=== PATIENT | female | born 1980 | race Caucasian/White ===

== ENCOUNTER 2021-08-22 17:14 | Emergency (ER) | payer MEDICAID ==
[~2021-08-22] VITALS: Ht 172 cm; Wt 66.0 kg
[2021-08-22] MEDS ORDERED: KETOROLAC 30 MG/ML VIAL IVP STA (17:58)
[2021-08-22] MEDS ORDERED: ONDANSETRON 4 MG/2 ML (SDV) Z0FRAN IVP ONE (18:00)
[2021-08-22] MEDS ORDERED: LACTATED RINGERS 1,000 ML IV ONE (18:00)
--- NOTE | 2021-08-22 18:04 | ED General ---
General Stated Complaint: COVID SYMPTOMS History of Present Illness Date Seen by Provider: Aug 22, 2021 Time Seen by Provider: 17:19 Initial Comments Date Seen by Provider: Aug 22, 2021 Time Seen by Provider: 17:19 Initial Comments Patient to ER by EMS from home with chief complaint of 2 weeks of headache and cough. Today she says she has a hard time swallowing because of her sore throat. She has not been seen anywhere or tested. She has a history of bipolar disorder but does not take any medicines or follow-up with a primary care doctor. She has nausea with vomiting but no diarrhea. She is says she stru ggled to take chicken noodle soup this morning. She thinks she has COVID-19. She did not get vaccinations for such. Patient gave herself Tylenol just before coming in but has not had anything prior to this. Patient has a history of alcoholism but says she has been clean for 2 years. Patient denies any other recreational drug use besides occasional marijuana. Patient states that her allergy to ibuprofen is that she has a rash with it. Her tubes are tied. PCP: NONE Allergies and Home Medications Allergies Coded Allergies: codeine (Verified Allergy, Unknown, 08/22/21) ibuprofen (Verified Allergy, Unknown, 08/22/21) Patient Home Medication List Home Medication List Reviewed: Yes Nitrofurantoin Monohyd/M-Cryst (Macrobid 100 mg Capsule) 100 Mg Capsule, 1 TAB PO BID Prescribed by: DAVID KOHLER on 08/22/211941 Ondansetron (Ondansetron Odt) 8 Mg Tab.rapdis, 8 MG PO Q6H Prescribed by: DAVID KOHLER on 08/22/211938 Review of Systems Review of Systems Constitutional: see HPI, fever, malaise, other (Review of Systems-Respiratory) EENTM: throat pain Respiratory: see HPI, cough; No short of breath Cardiovascular: no symptoms reported Gastrointestinal: see HPI; No abdominal pain, No diarrhea; loss of appetite, nausea, vomiting Genitourinary: no symptoms reported Musculoskeletal: see HPI Skin: no symptoms reported Psychiatric/Neurological: See HPI Hematologic/Lymphatic: No Symptoms Reported Immunological/Allergic: no symptoms reported Past Kvnxmmk-Vnwmad-Wpkcrh Hx Patient Social History Tobacco Use?: No Smoking Status: Never a Smoker Substance use?: Yes Substance type: Marijuana Substance frequency: Daily Alcohol Use?: Yes (HX OF ABUSE, CLAIMS NONE FOR 2 YEARS) Past Medical History Surgeries: Yes Gallbladder, Tubal Ligation Respiratory: No Cardiac: No Neurological: No : No [employer] History: Tubal Ligation Genitourinary: No Gastrointestinal: Yes (S/P CHOLECYSTECTOMY) Gall Bladder Disease Musculoskeletal: No Endocrine: No HEENT: No Cancer: No Psychosocial: Yes Anxiety, Bipolar, Depression Integumentary: No Blood Disorders: No Physical Exam Vital Signs Vital Signs - First Documented 08/22/21 17:14 Temp 38.9 Pulse 113 Resp 16 B/P (MAP) 178/93 (121) Pulse Ox 98 O2 Delivery Room Air Capillary Refill : Height, Weight, BMI Height: '" Weight: lbs. oz. kg; BMI Method: General Appearance: No Apparent Distress, WD/WN, Other (Review of Systems- Respiratory) HEENT: PERRL/EOMI, TMs Normal, Normal ENT Inspection, Pharynx Normal, Other (NASAL CONGESTION) Neck: Normal Inspection Respiratory: Normal Breath Sounds, No Accessory Muscle Use, No Respiratory Distress Cardiovascular: No Edema, No Gallop, No JVD, No Murmur, Normal Peripheral Pulses, Tachycardia Gastrointestinal: Normal Bowel Sounds, No Organomegaly, No Pulsatile Mass, Non Tender, Soft Back: Normal Inspection Extremity: Normal Capillary Refill, Normal Inspection, Normal Range of Motion, Non Tender, No Calf Tenderness, No Pedal Edema Neurologic/Psychiatric: Alert, Oriented x3, No Motor/Sensory Deficits, rose grader II- XII Norm as Tested, Other (FLAT AFFECT) Skin: Warm/Dry, Pallor; No Rash Focused Exam Sepsis Stage: Ruled Out Reason for ruling out sepsis: DOES NOT MEET CRITERIA Possible Source: Pulmonary (DX WITH UTI AT DISMISSAL) Lactate Level 08/22/21 18:04: Lactic Acid Level 1.13 Time of Focused Exam: 18:45 Respiratory: Normal Breath Sounds, No Accessory Muscle Use, No Respiratory Distress Cardiovascular: Regular Rate, Rhythm, No Murmur Capillary Refill: Less Than 3 Seconds Skin: normal color, warm/dry Lactic Acid Level Laboratory Tests Test 08/22/21 18:04 Lactic Acid Level 1.13 MMOL/L (0.50-2.00) Within 3hrs of presentation: Admin fluids, Admin ABX, Blood cultures prior to ABX's, Focus exam, Lactate level, Other (IV ANTIBIOTICS NOT NECESSARY, DID SEND HOME WITH ORAL ANTIBIOTIC FOR UTI) Progress/Results/Core Measures Suspected Sepsis SIRS Temperature: Pulse: Respiratory Rate: Laboratory Tests 08/22/21 17:40: White Blood Count 10.1 Blood Pressure / Mean: 08/22/21 18:04: Lactic Acid Level 1.13 Laboratory Tests 08/22/21 17:40: Creatinine 0.62, INR Comment 1.0, Platelet Count 383, Total Bilirubin 0.2 Results/Orders Lab Results Laboratory Tests Test 08/22/21 17:40 08/22/21 18:04 Range/Units White Blood Count 10.1 4.3-11.0 10^3/uL Red Blood Count 4.49 3.80-5.11 10^6/uL Hemoglobin 7.8 L 11.5-16.0 g/dL Hematocrit 29 L 35-52 % Mean Corpuscular Volume 64 L 80-99 fL Mean Corpuscular Hemoglobin 17 L 25-34 pg Mean Corpuscular Hemoglobin Concent 27 L 32-36 g/dL Red Cell Distribution Width 19.2 H 10.0-14.5 % Platelet Count 383 130-400 10^3/uL Mean Platelet Volume 9.5 9.0-12.2 fL Immature Granulocyte % (Auto) 0 % Neutrophils (%) (Auto) 74 42-75 % Lymphocytes (%) (Auto) 20 12-44 % Monocytes (%) (Auto) 6 0-12 % Eosinophils (%) (Auto) 1 0-10 % Basophils (%) (Auto) 0 0-10 % Neutrophils # (Auto) 7.4 1.8-7.8 10^3/uL Lymphocytes # (Auto) 2.0 1.0-4.0 10^3/uL Monocytes # (Auto) 0.6 0.0-1.0 10^3/uL Eosinophils # (Auto) 0.1 0.0-0.3 10^3/uL Basophils # (Auto) 0.0 0.0-0.1 10^3/uL Immature Granulocyte # (Auto) 0.0 0.0-0.1 10^3/uL Erythrocyte Sedimentation Rate 23 H 0-20 MM/HR Prothrombin Time 13.9 12.2-14.7 SEC INR Comment 1.0 0.8-1.4 Activated Partial Thromboplast Time 28 24-35 SEC D-Dimer 0.65 H 0.00-0.49 UG/ML Urine Color YELLOW Urine Clarity CLEAR Urine pH 6.0 5-9 Urine Specific [place] 1.015 L 1.016-1.022 Urine Protein NEGATIVE NEGATIVE Urine Glucose (UA) NEGATIVE NEGATIVE Urine Ketones NEGATIVE NEGATIVE Urine Nitrite NEGATIVE NEGATIVE Urine Bilirubin NEGATIVE NEGATIVE Urine Urobilinogen 0.2 < = 1.0 MG/DL Urine Leukocyte Esterase 1+ H NEGATIVE Urine RBC (Auto) NEGATIVE NEGATIVE Urine RBC NONE /HPF Urine WBC 2-5 /HPF Urine Squamous Epithelial Cells 2-5 /HPF Urine Crystals NONE /LPF Urine Bacteria MODERATE H /HPF Urine Casts NONE /LPF Urine Mucus SMALL H /LPF Urine Culture Indicated CULTURE PENDING Sodium Level 140 135-145 MMOL/L Potassium Level 3.5 L 3.6-5.0 MMOL/L Chloride Level 108 H 98-107 MMOL/L Carbon Dioxide Level 22 21-32 MMOL/L Anion Gap 10 5-14 MMOL/L Blood Urea Nitrogen 5 L 7-18 MG/DL Creatinine 0.62 0.60-1.30 MG/DL Estimat Glomerular Filtration Rate 115 BUN/Creatinine Ratio 8 Glucose Level 88 70-105 MG/DL Calcium Level 8.2 L 8.5-10.1 MG/DL Corrected Calcium 8.5 8.5-10.1 MG/DL Magnesium Level 1.8 1.6-2.4 MG/DL Total Bilirubin 0.2 0.1-1.0 MG/DL Aspartate Amino Transf (AST/SGOT) 13 5-34 U/L Alanine Aminotransferase (ALT/SGPT) 16 0-55 U/L Alkaline Phosphatase 103 40-136 U/L Lactate Dehydrogenase 176 125-220 U/L C-Reactive Protein High Sensitivity 0.29 0.00-0.50 MG/DL B-Type Natriuretic Peptide < 10.0 <100.0 PG/ML Total Protein 6.4 6.4-8.2 GM/DL Albumin 3.6 3.2-4.5 GM/DL Procalcitonin 0.03 <0.10 NG/ML Serum Test, Qualitative NEGATIVE NEGATIVE Urine Opiates Screen NEGATIVE NEGATIVE Urine Oxycodone Screen NEGATIVE NEGATIVE Urine Methadone Screen NEGATIVE NEGATIVE Urine Propoxyphene Screen NEGATIVE NEGATIVE Urine Barbiturates Screen NEGATIVE NEGATIVE Ur Tricyclic Antidepressants Screen NEGATIVE NEGATIVE Urine Phencyclidine Screen NEGATIVE NEGATIVE Urine Amphetamines Screen NEGATIVE NEGATIVE Urine Methamphetamines Screen NEGATIVE NEGATIVE Urine Benzodiazepines Screen NEGATIVE NEGATIVE Urine Cocaine Screen NEGATIVE NEGATIVE Urine Cannabinoids Screen NEGATIVE NEGATIVE Serum Alcohol < 10 <10 MG/DL Monoscreen NEGATIVE NEGATIVE Influenza Type A (RT-PCR) Not Detected Not Detecte Influenza Type B (RT-PCR) Not Detected Not Detecte SARS-CoV-2 RNA (RT-PCR) Not Detected Not Detecte Group A Streptococcus Screen NEGATIVE NEGATIVE Lactic Acid Level 1.13 0.50-2.00 MMOL/L My Orders Orders - DAVID KOHLER DO Cbc With Automated Diff (08/22/21 17:58) Comprehensive Metabolic Panel (08/22/21 17:58) Fibrin Degradation Products (08/22/21 17:58) Procalcitonin (Pct) (08/22/21 17:58) Hs C Reactive Protein (08/22/21 17:58) Erythrocyte Sedimentation Rate (08/22/21 17:58) LDH (08/22/21 17:58) Blood Culture (08/22/21 17:58) Hcg,Qualitative Serum (08/22/21 17:58) Covid 19 Inhouse Test (08/22/21 17:58) Sputum Culture (08/22/21 17:58) Urinalysis (08/22/21 17:58) Urine Culture (08/22/21 17:58) Protime With Inr (08/22/21 17:58) Partial Thromboplastin Time (08/22/21 17:58) Chest 1 View, Ap/Pa Only (08/22/21 17:58) Ed Iv/Invasive Line Start (08/22/21 17:58) Ed Iv/Invasive Line Start (08/22/21 17:58) Vital Signs Adult Sepsis Patie Q15M (08/22/21 17:58) O2 (08/22/21 17:58) Remove Rings In Anticipation O (08/22/21 17:58) Lactic Acid Analyzer (08/22/21 17:58) Monitor-Rhythm Ecg Trace Only (08/22/21 17:58) Bnp [place] (08/22/21 17:58) Magnesium (08/22/21 17:58) Ed Iv/Invasive Line Start (08/22/21 17:58) Lactated Ringers (Lr 1000 Ml Iv Solution (08/22/21 18:00) Ondansetron Injection (Zofran Injectio (08/22/21 18:00) Ketorolac Injection (Toradol Injection) (08/22/21 17:58) Influenza A And B By Pcr (08/22/21 17:58) Isolation Central Supply Req (08/22/21 17:58) Monotest (08/22/21 18:05) Rapid Strep A Screen (08/22/21 18:05) Alcohol (08/22/21 18:13) Drug Screen Stat (Urine) (08/22/21 18:13) Ct [facility]or Chest/Noang Abd-Pelv W (08/22/21 18:41) Iohexol Injection (Omnipaque 350 Mg/Ml 1 (08/22/21 18:45) Ns (Ivpb) (Sodium Chloride 0.9% Ivpb Bag (08/22/21 18:45) Medications Given in ED Current Medications Medications Dose Ordered Sig/Serafin Route Start Time Stop Time Status Last Admin Dose Admin Iohexol 100 ml ONCE ONCE IV 08/22/21 18:45 08/22/21 18:47 DC 08/22/21 18:56 66 ML Lactated Ringer's 1,000 ml @ 0 mls/hr Q0M ONCE IV 08/22/21 18:00 08/22/21 18:02 DC 08/22/21 18:14 1,000 MLS/HR Ondansetron HCl 8 mg ONCE ONCE IVP 08/22/21 18:00 08/22/21 18:02 DC 08/22/21 17:40 8 MG Sodium Chloride 100 ml ONCE ONCE IV 08/22/21 18:45 08/22/21 18:47 DC 08/22/21 18:56 70 ML Vital Signs/I&O 08/22/21 08/22/21 17:14 19:49 Temp 38.9 38.9 Pulse 113 107 Resp 16 16 B/P (MAP) 178/93 (121) 113/70 Pulse Ox 98 99 O2 Delivery Room Air Room Air Capillary Refill : Progress Note : Progress Note 1800--ASSUMED CARE FROM DR. OLGUIN, ALL STUDIES PENDING. PT WAS ORIGINALLY SIGNED IN UNDER THE NAME OF AUDRA DIAZ, AND ALL NOTES, ORDERS, ETC. WERE ORIGINALLY PLACED UNDER THAT NAME. ALL TESTS, MEDICATIONS, ETC. HAVE NOW ALL BEEN RE-ORDERED UNDER THE NAME OF AUDRA ARCOS. GIVEN IV FLUIDS, ZOFRAN AND TORADOL WITH IMPROVEMENT IN SYMPTOMS NO DETERIORATION IN PT'S CONDITION DURING ER STAY NO COUGH NO DYSPNEA NO HYPOXIA TEMP DOWN AT DISMISSAL NO VOMITING DURING ER STAY REVIEWED LAB RESULTS AND DISCUSSED IMPORTANCE OF FOLLOW UP AND ESTABLISHING ROUTINE MEDICAL CARE, AND FURTHER EVALUATION OF ANEMIA. PT STATES SHE HAS BEEN TOLD IN THE PAST THAT SHE IS ANEMIC, BUT DOES NOT KNOW HGB LEVEL, AND NEVER FOLLOWED UP WITH ANYONE ABOUT IT IN THE PAST. Diagnostic Imaging Comments CXR--PER RADIOLOGIST REPORT AT 1835 Heart size and pulmonary vascularity are normal. Lungs are clear. There are no effusions or pneumothoraces. IMPRESSION: No acute abnormalities in the chest. CT ANGIOGRAM CHEST/ABDOMEN-PELVIS--PER RADIOLOGIST REPORT AT 1929 COMPARISON: There are no prior CT examinations available for comparison. FINDINGS: The plain film examination of the chest performed prior to this study failed to show any sign of acute cardiopulmonary abnormality. The images through the thorax are less than optimal due to streak artifact. The heart size is within normal limits. The aorta is not abnormally dilated and there is no definite defect within the pulmonary arteries to indicate a pulmonary embolus. The lungs are clear. There is no sign of failure, pneumonia or a pleural effusion. There is no mediastinal or hilar adenopathy identified. There is a 1 cm low density nodule in the right lobe of the thyroid. A nonemergent thyroid ultrasound exam would be recommended to better characterize this finding. There is no obvious breast mass. The images through the abdomen show that the liver is homogeneous and not enlarged. The spleen, pancreas, adrenals, kidneys, aorta, portal vein and inferior vena cava show no sign of an acute abnormality. There is a tiny 1 mm nonobstructive calculus within the left kidney. The gallbladder is surgically absent. The stomach is partially filled with gas and fluid and difficult to assess. There is no pelvic mass or free fluid collection noted. The appendix is not abnormally thickened. The uterus and urinary bladder are grossly unremarkable. The bone windows show no sign of a fracture or of a destructive lesion. IMPRESSION: 1. There is no acute abnormality of the chest, abdomen or pelvis. 2. There is a tiny nonobstructive calculus within the left kidney. 3. The gallbladder is surgically absent. Reviewed: Reviewed by Me Departure Impression Primary Impression: COVID LIKE SYMPTOMS Additional Impressions: Anemia Nausea & vomiting UTI (urinary tract infection) Disposition: 01 HOME, SELF-CARE Condition: Improved Departure-Patient Inst. Decision time for Depature: 19:35 Patient Instructions: COVID-19 Home Care/Discharge, Anemia Caused by Low Iron, Nausea and Vomiting, Adult, Urinary Tract Infection, Adult ED Add. Discharge Instructions: LOTS OF CLEAR LIQUIDS--WATER, BROTH, JELLO, GATORADE BRATS DIET--BANANAS, RICE, APPLESAUCE, TOAST, SALTINES TYLENOL NEEDED FOR PAIN OR FEVER OVER THE COUNTER MEDICATIONS FOR COUGH AND CONGESTION, SUCH MUCINEX DM TAKE MULTIVITAMIN WITH IRON DAILY FOLLOW UP WITH IN 2-3 DAYS IF NO BETTER, RETURN TO ER IF WORSE QUARANTINE FOR THE NEXT WEEK MAKE AN APPOINTMENT TO ESTABLISH CARE WITH FOR ONGOING ROUTINE MEDICAL CARE AND RECHECK OF ANEMIA Scripts Nitrofurantoin Monohyd/M-Cryst (Macrobid 100 mg Capsule) 100 Mg Capsule 1 TAB PO BID, #20 CAP Prov: DAVID KOHLER DO 08/22/21 Ondansetron (Ondansetron Odt) 8 Mg Tab.rapdis 8 MG PO Q6H, #10 TAB Prov: DAVID KOHLER DO 08/22/21 Work/School Note: Local Medical Staff Listing DAVID KOHLER DO Aug 22, 2021 18:04
[2021-08-22 18:11] LABS: BASOPHILS % (AUTO) 0 % (0-10); EOSINOPHILS # (AUTO) 0.1 10^3/uL (0.0-0.3); EOSINOPHILS % (AUTO) 1 % (0-10); HEMATOCRIT 29 % (35-52); HEMOGLOBIN 7.8 g/dL (11.5-16.0); LYMPHOCYTES % (AUTO) 20 % (12-44); MEAN CORPUSCULAR HEMOGLOBIN 17 pg (25-34); MEAN CORPUSCULAR HGB CONC 27 g/dL (32-36); MEAN CORPUSCULAR VOLUME 64 fL (80-99); MEAN PLATELET VOLUME 9.5 fL (9.0-12.2); MONOCYTES # (AUTO) 0.6 10^3/uL (0.0-1.0); MONOCYTES % (AUTO) 6 % (0-12); NEUTROPHILS # (AUTO) 7.4 10^3/uL (1.8-7.8); NEUTROPHILS % (AUTO) 74 % (42-75); PLATELET COUNT 383 10^3/uL (130-400); WHITE BLOOD COUNT 10.1 10^3/uL (4.3-11.0)
[2021-08-22 18:13] LABS: ALBUMIN 3.6 GM/DL (3.2-4.5)
[2021-08-22 18:14] LABS: POTASSIUM 3.5 MMOL/L (3.6-5.0)
[2021-08-22 18:15] LABS: CALCIUM 8.2 MG/DL (8.5-10.1)
[2021-08-22 18:16] LABS: TOTAL PROTEIN 6.4 GM/DL (6.4-8.2)
[2021-08-22 18:18] LABS: BILIRUBIN,TOTAL 0.2 MG/DL (0.1-1.0); BILIRUBIN,URINE NEGATIVE (NEGATIVE); CLARITY,URINE CLEAR; COLOR,URINE YELLOW; GLUCOSE, URINE (UA) NEGATIVE (NEGATIVE); KETONES,URINE NEGATIVE (NEGATIVE); LEUKOCYTE ESTERASE ,URINE 1+ (NEGATIVE); NITRITE,URINE NEGATIVE (NEGATIVE); PROTEIN,URINE NEGATIVE (NEGATIVE)
[2021-08-22 18:20] LABS: CREATININE SERUM 0.62 MG/DL (0.60-1.30)
[2021-08-22 18:23] LABS: MAGNESIUM 1.8 MG/DL (1.6-2.4)
[2021-08-22 18:27] LABS: BACTERIA,URINE MODERATE /HPF
--- NOTE | 2021-08-22 18:28 | Diagnostic Imaging Report ---
INDICATION: Cough and fever. EXAMINATION: Portable chest at 6:08 PM. Heart size and pulmonary vascularity are normal. Lungs are clear. There are no effusions or pneumothoraces. IMPRESSION: No acute abnormalities in the chest. Dictated by: Dictated on workstation # [id number]
[2021-08-22 18:31] LABS: FIBRIN DEGRADATION PRODUCTS 0.65 UG/ML (0.00-0.49); PROTHROMBIN TIME PATIENT 13.9 SEC (12.2-14.7)
[2021-08-22 18:44] LABS: AMPHETAMINE SCREEN, URINE NEGATIVE (NEGATIVE); BARBITURATE SCREEN URINE NEGATIVE (NEGATIVE); BENZODIAZEPINES SCREEN URINE NEGATIVE (NEGATIVE); CANNABINOID SCREEN, URINE NEGATIVE (NEGATIVE); COCAINE SCREEN URINE NEGATIVE (NEGATIVE); ERYTHROCYTE SEDIMENTATION RATE 23 MM/HR (0-20); METHADONE STAT NEGATIVE (NEGATIVE); OPIATE SCREEN URINE NEGATIVE (NEGATIVE); OXYCODONE STAT NEGATIVE (NEGATIVE); PROPOXYPHENE STAT NEGATIVE (NEGATIVE); TRICYCLIC ANTIDEPRESSANTS SCRE NEGATIVE (NEGATIVE)
[2021-08-22] MEDS ORDERED: IOHEXOL 350 MG/ML 100 ML (OMNIPAQUE 350) VIAL IV ONE (18:45)
[2021-08-22] MEDS ORDERED: NS 100 ML (IVPB) BAG IV ONE (18:45)
--- NOTE | 2021-08-22 19:26 | Diagnostic Imaging Report ---
INDICATION: Fever, cough, N/V EXAMINATION: CTA chest, abdomen and pelvis. Thin axial sections through the chest, abdomen and pelvis are obtained following intravenous contrast bolus. Multiplanar MIP images were reconstructed and reviewed. All CT scans use one or more of the following dose optimizing techniques: automated exposure control, MA and/or KvP adjustment based on patient size and exam type or iterative reconstruction. COMPARISON: There are no prior CT examinations available for comparison. FINDINGS: The plain film examination of the chest performed prior to this study failed to show any sign of acute cardiopulmonary abnormality. The images through the thorax are less than optimal due to streak artifact. The heart size is within normal limits. The aorta is not abnormally dilated and there is no definite defect within the pulmonary arteries to indicate a pulmonary embolus. The lungs are clear. There is no sign of failure, pneumonia or a pleural effusion. There is no mediastinal or hilar adenopathy identified. There is a 1 cm low density nodule in the right lobe of the thyroid. A nonemergent thyroid ultrasound exam would be recommended to better characterize this finding. There is no obvious breast mass. The images through the abdomen show that the liver is homogeneous and not enlarged. The spleen, pancreas, adrenals, kidneys, aorta, portal vein and inferior vena cava show no sign of an acute abnormality. There is a tiny 1 mm nonobstructive calculus within the left kidney. The gallbladder is surgically absent. The stomach is partially filled with gas and fluid and difficult to assess. There is no pelvic mass or free fluid collection noted. The appendix is not abnormally thickened. The uterus and urinary bladder are grossly unremarkable. The bone windows show no sign of a fracture or of a destructive lesion. IMPRESSION: 1. There is no acute abnormality of the chest, abdomen or pelvis. 2. There is a tiny nonobstructive calculus within the left kidney. 3. The gallbladder is surgically absent. 4. A nonemergent thyroid ultrasound exam would be recommended for further evaluation of the nodule in the right lobe of the thyroid. Dictated by: Dictated on workstation # [id number]
[2021-08-22] MEDS ORDERED: ONDA8TAB13 PO (19:39)
[2021-08-22] MEDS ORDERED: NITR-65 PO (19:42)
[2021-08-22 19:49] VITALS: BP 113/70
== END 2021-08-22 19:51 | disposition home or self-care (01) ==
LOC: ER 17:53
DX: N39.0 Urinary tract infection, site not specified (principal); D64.9 Anemia, unspecified; R51.9 Headache, unspecified; R05.1 Acute cough; R09.81 Nasal congestion; J02.9 Acute pharyngitis, unspecified; Z90.49 Acquired absence of other specified parts of digestive tract; Z20.822 Contact with and (suspected) exposure to COVID-19; Z28.310 Unvaccinated for COVID-19; Z32.02 Encounter for pregnancy test, result negative
CPT/HCPCS: 71045; 71275; 74177; 80053; 80306; 81000; 83605; 83615; 83735; 83880; 84145; 84703 ×2; 85025; 85379; 85610; 85652; 85730; 86141; 86308; 87040; 87088; 87430; 87636; 93041; G0480; 36415; 80320